=== PATIENT | male | born 1980 ===

== ENCOUNTER 2016-05-13 21:48 | Inpatient (IN) ==
[2016-05-13] MEDS ORDERED: hydrALAZINE 20 MG/1 ML VIAL IV STA (22:18)
--- NOTE | 2016-05-13 22:29 | Emergency Department Note ---
IYony Meredith, am scribing for, and in the presence of, Gertrude Kearney DO 22: 17. ICaio Debra, DO, personally performed the services described in this documentation, ascribed by Marine Bhakta in my presence, and it is both accurate and complete . Arrival - Arrival Chief Complaint: Non-Specific Stated Complaint: DKA ED Nursing Triage Note: patient to ED coming from [facility] with c/o DKA and sore throat. patient with history of IDDM and he states that he is non- compliant with his medications. Mode of Arrival: Stretcher Limitations: No Limitations Source: Patient, Old Records Reviewed, RN Notes Reviewed Time Seen by Provider: 05/13/16 22:15 - History of Present Illness HPI Narrative: Pt is a 36 y/o male transferred to the ED by EMS from [facility] with DKA and sore throat. He has a history of IDDM and is non-compliant with his medications. Pt was last in DKA a few months ago. He is a current everyday smoker. pt has been out of meds x 2 months. last admission for DKA was in February Onset (ago): hour(s) Allergies/Adverse Reactions: Allergies Allergy/AdvReac Type Severity Reaction Status Date / Time No Known Allergies Allergy Unverified 05/13/16 22:07 Review of System - Review of System 12 point system: reviewed and no additional remarkable complaints except as stated - Review of System Head/Ears/Nose/Throat: Present: see HPI, sore throat Endocrine: Present: as per HPI, other (DKA) Medical,Surgical,& Family Hx - Medical History Endocrine: History of: Diabetes Mellitus (IDDM) - Surgical History Orthopedic Surgeries: Patient denies;: Total Knee Replacement - Family History Family History: Denies;: Additional Family History - Social History Smoking Status: Current every day smoker Frequency of Alcohol Use: Occasionally Type of Drug Use: Marijuana Exam Vital Signs: Vital Signs Temperature 97.2 F L 05/13/16 21:48 Pulse Rate 113 H 05/13/16 21:48 Respiratory Rate 22 05/13/16 21:48 Blood Pressure 168/102 05/13/16 21:48 O2 Sat by Pulse Oximetry 100 05/13/16 21:48 - General General appearance: in no apparent distress, lethargic - Head Head exam: Present: atraumatic, normocephalic - Eye Eye exam: Present: normal appearance, PERRL, EOMI - ENT ENT exam: Present: mucous membranes dry, normal external ear exam - Neck Neck exam: Present: full ROM, trachea midline. Absent: tenderness, meningismus , lymphadenopathy, thyromegaly - Chest Chest inspection: Present: symmetric chest wall rise. Absent: tenderness, rash - Respiratory Respiratory exam: Present: normal lung sounds bilaterally. Absent: respiratory distress - Cardiovascular Cardiovascular exam: Present: normal rhythm, tachycardia - Abdominal Exam Abdominal exam: Present: soft, normal bowel sounds. Absent: distention, tenderness - Extremities Exam Extremities exam: Present: full ROM, normal capillary refill. Absent: tenderness, pedal edema, calf tenderness - Back Exam Back exam: Present: full ROM. Absent: tenderness - Neurological Exam Neurological exam: Present: alert, oriented X3, CN II-XII intact. Absent: motor sensory deficit - Psychiatric Psychiatric exam: Present: normal affect, normal mood - Skin Skin exam: Present: warm, dry, intact, normal color Course Course Narrative: blood sugar was 361
[2016-05-13] MEDS ORDERED: hydrALAZINE 20 MG/1 ML VIAL ONE (22:53)
[2016-05-13] MEDS ORDERED: ENOXAPARIN 30 MG/0.3 ML SYRINGE SUBCUT SCH (23:45)
--- NOTE | 2016-05-13 23:47 | Hospitalist History & Physical ---
Assessment and Plan (1) Acute kidney injury Status: Acute Current Visit: Yes (2) Dehydration Status: Acute Current Visit: Yes (3) Diabetic ketoacidosis Status: Acute Current Visit: No (4) Type 1 diabetes mellitus Status: Chronic Assessment and plan: I plan for this patient we'll be admitting him to the ICU unit and put in him on the DKA protocol which will include an insulin infusion serial chemistries. Into new the insulin infusion until the gap closes and switch him over to subcutaneous insulin. We'll keep him nothing by mouth for now. He has a lot of nausea vomiting. Patient's for same 3 L the outside facility we'll continue with generous hydration here. We'll check an ABG to confirm acidosis year. He previously had a pH of 6.96 at the outside facility.. Current Visit: No History of Present Illness Chief complaint: patient's complaining about severe nausea and vomiting History of present illness: Mr. Dennison is a 36 year old male past medical history significant for diabetes who was transferred to our hospital from [facility]. Patient reports that his symptoms started at approximately 24 hours ago. Patient said at that time is when he started throwing up. He was afraid to take his insulin so he did not take any insulin. Been steadily having some abdominal pain and some chest pain after he throws up. Patient reports that he's had diabetes 2 years. Patient was found to be in DKA at the outside facility and was transferred to our hospital for further evaluation Home Medications Medication Instructions Recorded Confirmed Type Aspirin EC Tab 81 mg PO DAILY 02/24/15 02/24/15 History Gemfibrozil 600 mg PO BID 02/24/15 02/24/15 History Insulin Detemir [Levemir] 15 unit SUBCUT DAILY W/SUPPER 02/27/15 Rx injection Insulin Lispro [HumaLOG] 5 unit SUBCUT BID W/MEALS ml 02/27/15 Rx Allergies Allergy/AdvReac Type Severity Reaction Status Date / Time No Known Allergies Allergy Unverified 05/13/16 22:07 Medical,Surgical,& Family Hx - Medical History Cardio: History of: Hypertension Endocrine: History of: Diabetes Mellitus (IDDM) - Surgical History Orthopedic Surgeries: Patient denies;: Total Knee Replacement Additional Surgical History: Patient has not had any surgeries - Family History Family History: Reports;: Family Diabetes, Family Hypertension Denies;: Additional Family History - Social History Smoking Status: Current every day smoker Frequency of Alcohol Use: Occasionally Type of Drug Use: Marijuana 12 point system: reviewed and no additional remarkable complaints except as stated Exam - Constitutional Vitals: Period Temp Pulse Resp BP Sys/Huynh Pulse Ox Last 24 Hr 97.2 F-97.2 F 113-113 20-22 168-168/102-102 100 - General General appearance: Patient is a little lethargic - Head Head exam: Present: atraumatic, normocephalic - Eye Eye exam: Present: normal appearance, PERRL, EOMI - ENT ENT exam: Present: mucous membranes dry, normal external ear exam - Neck Neck exam: Present: full ROM, trachea midline. Absent: tenderness, meningismus , lymphadenopathy, thyromegaly - Chest Chest inspection: Present: symmetric chest wall rise. Absent: tenderness, rash - Respiratory Respiratory exam: Present: normal lung sounds bilaterally. Absent: respiratory distress - Cardiovascular Cardiovascular exam: Present: normal rhythm, tachycardia - Abdominal Exam Abdominal exam: Present: soft, normal bowel sounds. Absent: distention, tenderness - Extremities Exam Extremities exam: Present: full ROM, normal capillary refill. Absent: tenderness, pedal edema, calf tenderness - Back Exam Back exam: Present: full ROM. Absent: tenderness - Neurological Exam Neurological exam: Present: alert, oriented X3, CN II-XII intact. Absent: motor sensory deficit - Psychiatric Psychiatric exam: Present: normal affect, normal mood - Skin Skin exam: Present: warm, dry, intact, normal color Results - Labs Labs: Labs from earlier displayed white count 13.87 hemoglobin 16.5 hematocrit 50.4 platelets 247 sodium 133 potassium 4.3 chloride 98 bicarbonate 6 calcium 9.6 albumin 4.1 BUN 47 creatinine 3.2 glucose 751 total protein 9.2 total bili 0.6 AST 12 ALTs 15 alkaline phosphatase 178 patient was given 30 units subcutaneous insulin and 15 units of IV insulin at the outside facility with one aunt bicarbonate and 3 L of IV fluids
[2016-05-13] MEDS ORDERED: MAGNESIUM SULF RIDER 4 GM in PREMIX 1 EACH IV PRN (23:56)
[2016-05-13] MEDS ORDERED: MAGNESIUM SULF RIDER 2 GM in PREMIX 1 EACH IV PRN (23:56)
[2016-05-13] MEDS ORDERED: SODIUM BICARB INJ 100 MEQ in STERILE WATER INJ 400 ML IV PRN (23:56)
[2016-05-13] MEDS ORDERED: DEXTROSE 50% 25 GM/50 ML VIAL IV PRN (23:56)
[2016-05-13] MEDS ORDERED: SODIUM CHLORIDE 0.9% IV PRN (23:56)
[2016-05-13] MEDS ORDERED: SODIUM PHOSPHATE IV PRN (23:56)
[2016-05-14 00:08] LABS: Albumin 3.5 G/DL (3.4-5.0); Bilirubin,Total 0.4 MG/DL (0.2-1.0); Calcium 8.4 MG/DL (8.5-10.1); Osmolality,Calculated 315.4 MOS/KG (273-304); Potassium 3.5 MMOL/L (3.5-5.1); Total Protein 7.2 G/DL (6.4-8.3)
[2016-05-14] MEDS ORDERED: SODIUM CHLORIDE 0.9% 1,000 ML IV SCH ×3 (01:00→06:00)
[2016-05-14 01:19] LABS: Magnesium 2.1 MG/DL (1.8-2.4); Phosphorous 1.3 MG/DL (2.5-4.9)
[2016-05-14 01:32] LABS: Basophils % 0.1 % (0.0-0.8); Hematocrit 48.5 VOL% (42.0-52.0); Hemoglobin 16.1 GM/DL (14.0-18.0); Immature Granulocytes % 0.8 %; Immature Granulocytes Absolute 0.08 #; Lymphocytes # 0.7 10*3/uL (1.4-4.0); Mean Corpuscular HGB Conc 33.2 GM/DL (32-36); Mean Corpuscular Hemoglobin 30 PG (27-34); Mean Corpuscular Volume 91.7 FL (87-102); Mean Platelet Volume 11.8 FL (9.6-12.0); Monocytes # 0.7 10*3/uL (0.11-0.8); Monocytes % 7.7 % (1.7-12.7); Neutrophils % 84.4 % (38.7-73.9); Platelet Count 191 T/CUMM (130-400); Red Blood Count 5.29 MC/CUMM (3.8-5.5); White Blood Count 9.5 T/CUMM (4-12)
[2016-05-14 02:04] LABS: ABG Base Excess -24.4 MMOL/L (-2.5-2.5); ABG HCO3 8.4 MMOL/L (20-26); ABG Oxygen Saturation 98.3 % (95-100); ABG TCO2 4.1 MMOL/L (23-27)
[2016-05-14] MEDS: INSULIN REGULAR DRIP 100 ML IV SCH ×2 (02:05→23:16)
[2016-05-14 02:07] LABS: ABG PCO2 13.6 MM HG (35-48); ABG PH 7.136 (7.35-7.45)
[2016-05-14 02:31] LABS: Calcium 9.1 MG/DL (8.5-10.1); Osmolality,Calculated 313.6 MOS/KG (273-304); Potassium 3.5 MMOL/L (3.5-5.1)
[2016-05-14 02:58] LABS: Band Neutrophils 6 % (0-10); Lymphocytes 10 % (20-55); Myelocytes 1 %; Segmented Neutrophils 76 % (50-85); Total Cells Counted 100
[2016-05-14 03:00] LABS: Burr Cells 1+; Platelet Estimate Normal
[2016-05-14 03:13] LABS: Apearance,Urine CLEAR (Clear); Bilirubin,Urine Negative (Negative); Blood, Urine Small mg/dL (Negative); Glucose,Urine (UA) >=500 mg/dL (Negative); Granular Casts,Urine 4 /LPF (0-1); Hyaline Casts,Urine 1 /LPF (0-3); Ketones,Urine 80 mg/dL (Negative); Mucus,Urine Occasional /LPF (Occasional); Nitrite,Urine Negative (Negative); Protein,Urine 30 MG/DL; RBC,Urine 1 /HPF (0-4); Urine Color Straw (Yellow); Urine Specific Gravity 1.009 (1.001-1.035); Urine Urobilinogen < 2.0 EU/DL (0.2-1.0); WBC,Urine 1 /HPF (0-6)
[2016-05-14] MEDS ORDERED: SODIUM CHLORIDE 0.45% 1,000 ML IV SCH (05:00)
[2016-05-14] MEDS: POTASSIUM CHLORIDE RIDER 10 MEQ in PREMIX 1 EACH IV PRN ×9 (05:52→18:22)
[2016-05-14 07:22] LABS: Calcium 9.3 MG/DL (8.5-10.1); Potassium 3.1 MMOL/L (3.5-5.1)
[2016-05-14] MEDS ORDERED: DEXTROSE 5% IV SCH ×2 (07:30→08:00)
[2016-05-14] MEDS ORDERED: NACL 0.9% IV SCH (07:30)
[2016-05-14] MEDS ORDERED: NACL 0.45% IV SCH (08:00)
[2016-05-14 08:26] LABS: Magnesium 2.2 MG/DL (1.8-2.4)
[2016-05-14 08:30] LABS: Phosphorous 0.9 MG/DL (2.5-4.9)
--- NOTE | 2016-05-14 08:34 | XRay Report ---
Referring Physician: Cal Jackson Exam: XR chest 1V Date: May 13, 2016 at 11:52 PM Reason: Shortness of breath Comparison: Chest single view May 13, 2016 at 6:48 PM Findings: The cardiac silhouette is normal in size. There is questionable minimal atelectasis within the lower lung zones. No pneumothorax or pleural effusion is identified. No acute osseous process is seen. Impression: Possible minimal atelectasis within the lower lung zones. PROCEDURE INTERPRETED AT [facility] [place] DEPARTMENT OF RADIOLOGY Final Report Signed by: Dr. Deanna Fong
[2016-05-14] MEDS: DEXTROSE 5% 1,000 ML IV SCH ×3 (09:15→22:37)
[2016-05-14 10:06] LABS: ABG Base Excess -13.6 MMOL/L (-2.5-2.5); ABG Oxygen Saturation 97.9 % (95-100); ABG PCO2 23.6 MM HG (35-48); ABG PH 7.286 (7.35-7.45); ABG PO2 103.8 MM HG (80-95); ABG TCO2 11.7 MMOL/L (23-27)
--- NOTE | 2016-05-14 12:18 | Hospitalist Progress Note ---
Assessment and Plan - Time spent with patient Time spent with patient: Greater than 30 minutes (1) Diabetic ketoacidosis Status: Acute Assessment and plan: Poor diabetic medication compliance. Currently on a DKA pathway. His PTH is improving. He still has an open gap. He has various electrolyte disorders associated with DKA which are gradually improving. Continue current management. Current Visit: No (2) Acute kidney injury Status: Acute Assessment and plan: Continue fluid hydration. Current Visit: Yes Hospitalist: Subjective Interval history: No complaints. Mr. Dennison was admitted for management of DKA. Exam - Constitutional Vitals: Period Temp Pulse Resp BP Sys/Huynh Pulse Ox Last 24 Hr 98.6 F-99.7 F 94-119 12-23 133-162/68-100 98-100 General appearance: no acute distress - Head Head exam: Present: normocephalic, atraumatic - Eye Eye exam: Present: EOMI Pupils: Present: COOKIE - ENT ENT exam: Present: normal exam - Neck Neck exam: Present: normal inspection - Respiratory Respiratory exam: Present: clear to auscultation bilaterally. Absent: rhonchi, wheezes - Cardiovascular Cardiovascular exam: Present: regular rate and rhythm. Absent: gallop, rubs, systolic murmur - GI/Abdominal GI/Abdominal exam: Present: normal bowel sounds, soft. Absent: distended, firm , guarding, tenderness, rebound - Extremities Exam Extremities exam: Present: normal inspection. Absent: calf tenderness, edema Results - Labs CBC & BMP: 05/14/16 01:20 05/14/16 06:14 Lab Results: I have reviewed the past 24 hour labs
[2016-05-14 12:50] LABS: Calcium 8.7 MG/DL (8.5-10.1); Osmolality,Calculated 302.1 MOS/KG (273-304); Potassium 2.7 MMOL/L (3.5-5.1)
[2016-05-14] MEDS ORDERED: CYCLOBENZAPRINE 10 MG TABLET PO PRN (15:37)
[2016-05-14 16:37] LABS: Calcium 8.7 MG/DL (8.5-10.1); Osmolality,Calculated 298.4 MOS/KG (273-304); Potassium 3.1 MMOL/L (3.5-5.1)
[2016-05-14 20:32] LABS: Calcium 8.5 MG/DL (8.5-10.1); Potassium 4.9 MMOL/L (3.5-5.1)
[2016-05-14] MEDS: DEXTROSE 50% 25 GM/50 ML VIAL IV PRN (22:37)
[2016-05-15] MEDS: ENOXAPARIN 40 MG/0.4 ML SYRINGE SUBCUT SCH ×2 (00:07→23:43)
[2016-05-15 00:51] LABS: Basophils % 0.2 % (0.0-0.8); Eosinophils % 0.5 % (0.00-10.9); Hemoglobin 13.6 GM/DL (14.0-18.0); Immature Granulocytes % 0.2 %; Immature Granulocytes Absolute 0.01 #; Lymphocytes # 1.3 10*3/uL (1.4-4.0); Lymphocytes % 22.2 % (21.2-54.2); Mean Corpuscular HGB Conc 34.9 GM/DL (32-36); Mean Corpuscular Hemoglobin 31 PG (27-34); Mean Corpuscular Volume 87.4 FL (87-102); Mean Platelet Volume 10.9 FL (9.6-12.0); Monocytes # 0.7 10*3/uL (0.11-0.8); Monocytes % 12.1 % (1.7-12.7); Neutrophils # 3.7 10*3/uL (1.4-7.4); Neutrophils % 64.8 % (38.7-73.9); Platelet Count 145 T/CUMM (130-400); Red Blood Count 4.46 MC/CUMM (3.8-5.5); Red Cell Distribution Width 13.5 % (9.3-17.3); White Blood Count 5.7 T/CUMM (4-12)
[2016-05-15 01:13] LABS: Calcium 8.9 MG/DL (8.5-10.1); Osmolality,Calculated 293.8 MOS/KG (273-304); Potassium 2.7 MMOL/L (3.5-5.1)
[2016-05-15] MEDS: POTASSIUM CHLORIDE RIDER 10 MEQ in PREMIX 1 EACH IV PRN ×10 (01:40→21:08)
[2016-05-15 05:15] LABS: Calcium 8.3 MG/DL (8.5-10.1)
[2016-05-15] MEDS: DEXTROSE 5% 1,000 ML IV SCH ×2 (05:18→12:52)
[2016-05-15 08:12] LABS: Calcium 8.4 MG/DL (8.5-10.1); Osmolality,Calculated 289.3 MOS/KG (273-304); Potassium 3.1 MMOL/L (3.5-5.1)
--- NOTE | 2016-05-15 09:58 | Hospitalist Progress Note ---
Assessment and Plan - Time spent with patient Time spent with patient: Greater than 30 minutes (1) Diabetic ketoacidosis Status: Acute Assessment and plan: Poor diabetic medication compliance. Currently on a DKA pathway. He still has an open gap. He has various electrolyte disorders associated with DKA which are gradually improving. Continue current management. Current Visit: No (2) Acute kidney injury Status: Acute Assessment and plan: Continue fluid hydration. Current Visit: Yes Hospitalist: Subjective Interval history: No complaints, no overnight events. Exam - Constitutional Vitals: Period Temp Pulse Resp BP Sys/Huynh Pulse Ox Last 24 Hr 98.6 F-100.1 F 74-104 13-27 121-157/71-106 98-100 General appearance: no acute distress - Head Head exam: Present: normocephalic, atraumatic - Eye Eye exam: Present: EOMI Pupils: Present: COOKIE - ENT ENT exam: Present: normal exam - Neck Neck exam: Present: normal inspection - Respiratory Respiratory exam: Present: clear to auscultation bilaterally. Absent: rhonchi, wheezes - Cardiovascular Cardiovascular exam: Present: regular rate and rhythm. Absent: gallop, rubs, systolic murmur - GI/Abdominal GI/Abdominal exam: Present: normal bowel sounds, soft. Absent: distended, firm , guarding, tenderness, rebound - Extremities Exam Extremities exam: Present: normal inspection. Absent: calf tenderness, edema Results - Labs CBC & BMP: 05/15/16 00:42 05/15/16 08:50 Lab Results: I have reviewed the past 24 hour labs
[2016-05-15 12:52] LABS: Calcium 8.1 MG/DL (8.5-10.1); Potassium 3.2 MMOL/L (3.5-5.1)
[2016-05-15 16:55] LABS: Calcium 8.6 MG/DL (8.5-10.1); Osmolality,Calculated 290.8 MOS/KG (273-304); Potassium 2.8 MMOL/L (3.5-5.1)
[2016-05-15] MEDS ORDERED: DEXTROSE 5% NACL 0.45% 1,000 ML IV SCH (17:30)
[2016-05-15] MEDS: POTASSIUM CHLORIDE 20 MEQ TABLET PO PRN ×3 (18:29→23:42)
[2016-05-15] MEDS ORDERED: SODIUM CHLORIDE 0.45% 1,000 ML IV SCH (18:30)
[2016-05-15 20:35] LABS: Calcium 8.3 MG/DL (8.5-10.1); Osmolality,Calculated 293.7 MOS/KG (273-304); Potassium 2.9 MMOL/L (3.5-5.1)
[2016-05-15] MEDS: DEXTROSE 5% NACL 0.45% 1,000 ML IV SCH (21:35)
[2016-05-15] MEDS: INSULIN REGULAR DRIP 100 ML IV SCH (23:51)
[2016-05-15] MEDS: SODIUM CHLORIDE 0.45% 1,000 ML IV SCH (23:54)
[2016-05-16 02:15] LABS: Calcium 8.3 MG/DL (8.5-10.1); Osmolality,Calculated 292.4 MOS/KG (273-304); Potassium 2.9 MMOL/L (3.5-5.1)
[2016-05-16] MEDS: POTASSIUM CHLORIDE 20 MEQ TABLET PO PRN ×5 (02:15→16:45)
[2016-05-16] MEDS: DEXTROSE 5% NACL 0.45% 1,000 ML IV SCH (04:49)
[2016-05-16 04:56] LABS: Eosinophils % 0.8 % (0.00-10.9); Hematocrit 32.7 VOL% (42.0-52.0); Hemoglobin 11.8 GM/DL (14.0-18.0); Immature Granulocytes % 0.2 %; Immature Granulocytes Absolute 0.01 #; Mean Corpuscular HGB Conc 36.1 GM/DL (32-36); Mean Corpuscular Hemoglobin 30 PG (27-34); Mean Corpuscular Volume 83.8 FL (87-102); Mean Platelet Volume 12.3 FL (9.6-12.0); Monocytes # 0.5 10*3/uL (0.11-0.8); Monocytes % 10.7 % (1.7-12.7); NRBC # 0.02 10*3/uL; Neutrophils # 2.4 10*3/uL (1.4-7.4); Neutrophils % 48.3 % (38.7-73.9); Platelet Count 101 T/CUMM (130-400); Red Cell Distribution Width 13.2 % (9.3-17.3)
[2016-05-16 05:45] LABS: Calcium 8.2 MG/DL (8.5-10.1); Osmolality,Calculated 289.7 MOS/KG (273-304); Potassium 3.3 MMOL/L (3.5-5.1)
[2016-05-16] MEDS: SODIUM CHLORIDE 0.45% 1,000 ML IV SCH (06:53)
[2016-05-16 08:32] LABS: Calcium 8.2 MG/DL (8.5-10.1); Osmolality,Calculated 292.3 MOS/KG (273-304); Potassium 2.9 MMOL/L (3.5-5.1)
[2016-05-16] MEDS ORDERED: GLUCAGON 1 MG VIAL IM PRN (08:56)
[2016-05-16] MEDS ORDERED: DEXTROSE 50% 25 GM/50 ML VIAL IV PRN (08:56)
[2016-05-16] MEDS: DEXTROSE 50% 25 GM/50 ML VIAL IV PRN (09:24)
[2016-05-16] MEDS: DEXT 5% NACL 0.45% KCL 40 MEQ 40 MEQ/1,000 ML BAG IV SCH ×2 (09:47→15:05)
--- NOTE | 2016-05-16 10:20 | Hospitalist Progress Note ---
Assessment and Plan - Time spent with patient Time spent with patient: Greater than 30 minutes (1) Diabetic ketoacidosis Status: Acute Assessment and plan: Poor diabetic medication compliance. Currently on a DKA pathway. He still has an open gap. He has various electrolyte disorders associated with DKA which are gradually improving. Will increase fluid rate infusion. Current Visit: No (2) Acute kidney injury Status: Acute Assessment and plan: Continue fluid hydration. Current Visit: Yes (3) Hypernatremia Status: Acute Assessment and plan: Continue D5W. Current Visit: Yes (4) Hypokalemia Status: Resolved Assessment and plan: Continue replenishement. Current Visit: No Hospitalist: Subjective Interval history: Has been having mild elevation of temperatures. Has no complaints, denies subjective fever. No dysuria. No chest or abdominal pain. Exam - Constitutional Vitals: Period Temp Pulse Resp BP Sys/Huynh Pulse Ox Last 24 Hr 97.9 F-99.9 F 71-83 13-21 106-174/53-93 97-100 General appearance: no acute distress - Head Head exam: Present: normocephalic, atraumatic - Eye Eye exam: Present: EOMI Pupils: Present: COOKIE - ENT ENT exam: Present: normal exam - Neck Neck exam: Present: normal inspection - Respiratory Respiratory exam: Present: clear to auscultation bilaterally. Absent: rhonchi, wheezes - Cardiovascular Cardiovascular exam: Present: regular rate and rhythm. Absent: gallop, rubs, systolic murmur - GI/Abdominal GI/Abdominal exam: Present: normal bowel sounds, soft. Absent: distended, firm , guarding, tenderness, rebound - Extremities Exam Extremities exam: Present: normal inspection. Absent: calf tenderness, edema Results - Labs CBC & BMP: 05/16/16 04:38 05/16/16 07:43 Lab Results: I have reviewed the past 24 hour labs
[2016-05-16] MEDS: POTASSIUM CHLORIDE INJ 40 MEQ in SODIUM CHLORIDE 0.45% 1,000 ML IV SCH ×3 (10:49→23:56)
--- NOTE | 2016-05-16 10:59 | XRay Report ---
Exam: XR chest 1V portable Date: 05/16/2016 10:05 AM Indication: Fever Comparison: 05/13/2016 Technical: AP Findings: External cardiac leads are present. The heart, lungs, mediastinum bony structures reveal no acute findings. A few scattered reticular nodular densities in the lung [place]. Impression: 1. No acute cardiopulmonary pathology PROCEDURE INTERPRETED AT [facility] DEPARTMENT OF RADIOLOGY Final Report Signed by: Dr. Sami Hollins
[2016-05-16] MEDS: INSULIN GLARGINE 100 UNIT/ML SUBCUT SCH (11:07)
[2016-05-16 12:24] LABS: Calcium 8.3 MG/DL (8.5-10.1); Magnesium 2.5 MG/DL (1.8-2.4); Osmolality,Calculated 299.7 MOS/KG (273-304); Potassium 3.2 MMOL/L (3.5-5.1)
[2016-05-16] MEDS: INSULIN REGULAR DRIP 100 ML IV SCH (14:35)
[2016-05-16 16:46] LABS: Calcium 8.1 MG/DL (8.5-10.1); Osmolality,Calculated 294.1 MOS/KG (273-304); Potassium 3.9 MMOL/L (3.5-5.1)
[2016-05-16] MEDS: INSULIN LISPRO 100 UNIT/ML SUBCUT SCH (18:05)
[2016-05-16] MEDS: POTASSIUM CHLORIDE INJ 40 MEQ, SODIUM CHLORIDE 23.4% CONC INJ 38.5 MEQ in STERILE WATER... IV SCH (20:30)
[2016-05-17] MEDS: ENOXAPARIN 40 MG/0.4 ML SYRINGE SUBCUT SCH
[2016-05-17] MEDS: INSULIN REGULAR DRIP 100 ML IV SCH (00:03)
[2016-05-17] MEDS: INSULIN LISPRO 100 UNIT/ML SUBCUT SCH ×9 (00:49→20:02)
[2016-05-17 01:52] LABS: Calcium 8.7 MG/DL (8.5-10.1); Osmolality,Calculated 291.8 MOS/KG (273-304); Potassium 4.3 MMOL/L (3.5-5.1)
[2016-05-17] MEDS: POTASSIUM CHLORIDE INJ 40 MEQ, SODIUM CHLORIDE 23.4% CONC INJ 38.5 MEQ in STERILE WATER... IV SCH ×3 (04:16→21:43)
[2016-05-17 06:14] LABS: Calcium 8.5 MG/DL (8.5-10.1); Magnesium 2.2 MG/DL (1.8-2.4); Osmolality,Calculated 290.7 MOS/KG (273-304); Potassium 4.1 MMOL/L (3.5-5.1)
[2016-05-17] MEDS: POTASSIUM CHLORIDE INJ 40 MEQ in SODIUM CHLORIDE 0.45% 1,000 ML IV SCH (06:38)
[2016-05-17] MEDS: INSULIN GLARGINE 100 UNIT/ML SUBCUT SCH (08:14)
[2016-05-17 09:53] LABS: Calcium 8.2 MG/DL (8.5-10.1); Osmolality,Calculated 293.7 MOS/KG (273-304)
--- NOTE | 2016-05-17 13:37 | Hospitalist Progress Note ---
Assessment and Plan (1) Diabetic ketoacidosis Status: Acute Assessment and plan: Pt with improvement in anion gap and bicarb Insulin infusion discontinued yesterday Tolerating diet On lantus and SSI Transfer to floor today Current Visit: Yes (2) Type 1 diabetes mellitus Status: Chronic Assessment and plan: History of non-compliance Nursing education provided Current Visit: Yes Qualifiers: Diabetes mellitus complication status: with hyperglycemia Qualified Code(s) : E10.65 - Type 1 diabetes mellitus with hyperglycemia Hospitalist: Subjective Interval history: Pt reports doing well this am. Reports that he feels much better. Denies abdominal pain or nausea. Tolerating diet well. Exam - Constitutional Vitals: Period Temp Pulse Resp BP Sys/Huynh Pulse Ox Last 24 Hr 98.3 F-99.6 F 71-92 12-81 98-167/52-101 96-100 General appearance: normal weight, no acute distress - Head Head exam: Present: normocephalic, atraumatic - Eye Eye exam: Present: EOMI. Absent: periorbital swelling, scleral icterus Pupils: Present: COOKIE. Absent: constricted - ENT ENT exam: Present: normal exam - Neck Neck exam: Present: normal inspection. Absent: lymphadenopathy, tenderness - Respiratory Respiratory exam: Present: clear to auscultation bilaterally. Absent: rales, rhonchi, stridor - Cardiovascular Cardiovascular exam: Present: regular rate and rhythm. Absent: diastolic murmur - GI/Abdominal GI/Abdominal exam: Present: normal bowel sounds. Absent: distended, guarding - Extremities Exam Extremities exam: Present: normal inspection, full ROM. Absent: edema - Back Exam Back exam: Present: normal inspection - Neurological Exam Neurological exam: Present: alert, oriented X3 - Psychiatric Psychiatric exam: Present: normal affect, normal mood - Skin Skin exam: Present: normal color, warm. Absent: cyanosis Results - Labs CBC & BMP: 05/16/16 04:38 05/17/16 09:09
[2016-05-18] MEDS: ENOXAPARIN 40 MG/0.4 ML SYRINGE SUBCUT SCH ×2 (01:09→23:48)
[2016-05-18 06:01] LABS: Calcium 8.4 MG/DL (8.5-10.1); Potassium 4.4 MMOL/L (3.5-5.1)
[2016-05-18] MEDS: POTASSIUM CHLORIDE INJ 40 MEQ, SODIUM CHLORIDE 23.4% CONC INJ 38.5 MEQ in STERILE WATER... IV SCH ×2 (09:19→17:13)
[2016-05-18] MEDS: INSULIN GLARGINE 100 UNIT/ML SUBCUT SCH (09:19)
[2016-05-18] MEDS: INSULIN LISPRO 100 UNIT/ML SUBCUT SCH ×8 (09:20→20:28)
[2016-05-18] MEDS ORDERED: INSULIN GLARGINE 100 UNIT/ML SUBCUT SCH (14:46)
--- NOTE | 2016-05-18 15:59 | Hospitalist Progress Note ---
Assessment and Plan (1) Diabetic ketoacidosis Status: Acute Assessment and plan: Pt with improvement in anion gap and bicarb Tolerating diet On lantus and SSI Current Visit: Yes (2) Type 1 diabetes mellitus Status: Chronic Assessment and plan: FSG still elevated in 200 range Increase Lantus Current Visit: Yes Qualifiers: Diabetes mellitus complication status: with hyperglycemia Qualified Code(s) : E10.65 - Type 1 diabetes mellitus with hyperglycemia Hospitalist: Subjective Interval history: Still reports feeling better. Tolerating diet. No nausea or vomiting Exam - Constitutional Vitals: Period Temp Pulse Resp BP Sys/Huynh Pulse Ox Last 24 Hr 97.3 F-98.7 F 73-92 18-20 120-135/68-91 100-100 General appearance: normal weight - Head Head exam: Present: normocephalic, atraumatic - Eye Eye exam: Present: EOMI Pupils: Present: COOKIE - ENT ENT exam: Present: normal exam - Neck Neck exam: Present: normal inspection - Respiratory Respiratory exam: Present: clear to auscultation bilaterally - Cardiovascular Cardiovascular exam: Present: regular rate and rhythm - GI/Abdominal GI/Abdominal exam: Present: normal bowel sounds - Extremities Exam Extremities exam: Present: normal inspection - Back Exam Back exam: Present: normal inspection - Neurological Exam Neurological exam: Present: alert, oriented X3 - Psychiatric Psychiatric exam: Present: normal affect, normal mood - Skin Skin exam: Present: normal color, intact Results - Labs CBC & BMP: 05/16/16 04:38 05/18/16 05:03
[2016-05-19] MEDS: POTASSIUM CHLORIDE INJ 40 MEQ, SODIUM CHLORIDE 23.4% CONC INJ 38.5 MEQ in STERILE WATER... IV SCH ×2 (01:18→09:58)
[2016-05-19 09:02] LABS: Calcium 8.4 MG/DL (8.5-10.1); Potassium 4.1 MMOL/L (3.5-5.1)
[2016-05-19] MEDS: INSULIN LISPRO 100 UNIT/ML SUBCUT SCH ×6 (09:59→17:08)
[2016-05-19 12:22] VITALS: BP 119/66
--- NOTE | 2016-05-19 16:32 | Discharge Summary ---
Hospital Course - Hospital Course Hospital Course: 36 y/o male with Diabetes Mellitus type 1 with history of noncompliance admitted with DKA. Patient was treated with IV insulin and fluids, initially monitored closely in the ICU. His gap closed and he was transferred to the floor. He has tolerated a diet well. His fsg's are still elevated in 200s. He is stable and will be discharged to home. He will follow-up with his PCP on Sunday. - Time spent with patient Time with patient DS: Less than 30 minutes Diagnosis - Discharge Diagnosis (1) Diabetic ketoacidosis Status: Resolved (2) Type 1 diabetes mellitus Status: Chronic Discharge Plan - Discharge Data Condition at Discharge: Stable Discharge Diet: diabetic diet Activity: resume usual activities as tolerated Hygiene: no restrictions Weight Bearing at Discharge: full weight bearing Driving: no restrictions Contact your physician if you experience:: fever over 101, Nausea/Vomiting - Discharge Medications No Action No Known Home Medications [No Known Home Medications] - Follow Up or Referral - Forms/Instructions Exam - Constitutional Vitals: Period Temp Pulse Resp BP Sys/Huynh Pulse Ox Last 24 Hr 97.3 F-98.5 F 69-97 18-20 119-133/66-78 96-99 General appearance: normal weight - Head Head exam: Present: normocephalic, atraumatic - Eye Eye exam: Present: EOMI Pupils: Present: COOKIE - ENT ENT exam: Present: normal exam - Neck Neck exam: Present: normal inspection. Absent: lymphadenopathy, tenderness - Respiratory Respiratory exam: Present: clear to auscultation bilaterally - Cardiovascular Cardiovascular exam: Present: regular rate and rhythm - GI/Abdominal GI/Abdominal exam: Present: normal bowel sounds - Extremities Exam Extremities exam: Present: normal inspection - Back Exam Back exam: Present: normal inspection - Neurological Exam Neurological exam: Present: alert, oriented X3 - Psychiatric Psychiatric exam: Present: normal affect, normal mood - Skin Skin exam: Present: warm, intact Discharge Results Labs on day of discharge: Labs from last 24 hours 05/19/16 05/19/16 05/19/16 11:52 07:59 07:23 Sodium 143 Potassium 4.1 Chloride 106 Carbon Dioxide 25 Anion Gap 16.1 H BUN 12 Creatinine 0.90 GFR Calculation 121 BUN/Creatinine Ratio 13.00 Glucose 210 H POC Glucose 211 H 271 H Calculated Osmolality 290.0 Calcium 8.4 L 05/18/16 05/18/16 18:18 16:46 Sodium Potassium Chloride Carbon Dioxide Anion Gap BUN Creatinine GFR Calculation BUN/Creatinine Ratio Glucose POC Glucose 320 H 157 H Calculated Osmolality Calcium DS: Provider Date of admission: 05/13/16 22:56 Primary care physician: Wilfredo Augustine MD Attending physician on admission: Tabby Brasher MD Consults: 05/13/16 23:57 Consult to [facility], Educator [CONS] Routine Reason for Auto Dismantler: Diabetes Education Initial Insulin Education Consult Comment: INSULIN EDUCATION 05/14/16 00:22 Consult to Pharmacy [CONS] Routine Reason for Pharmacy Consult: Adjust Meds Renal Funct Discharging clinician: Steffanie Carlos MD
== END 2016-05-19 17:27 | disposition home or self-care (01) | DRG 638 ==
LOC: EDUNIT# → N.ED 21:48 → N.EDINP 22:56 → SUATTDRO 22:56 → N.CC 05-14 00:16 → N.4E 05-18 06:13
PROVIDERS: ADMIT Internal Medicine; ATTEND Internal Medicine